=== PATIENT | female | born 1970 | race Caucasian/White ===

== ENCOUNTER 2020-08-22 11:39 | Inpatient (IN) | payer OTHER, MEDICAID ==
[~2020-08-22] VITALS: Ht 172.7 cm; Wt 79.4 kg
[2020-08-22] MEDS ORDERED: OXYCODONE W/ ACETAMINOPHEN 5/325MG TABLET PO ONE (14:15)
[2020-08-22 16:25] LABS: Basophils # (auto) 0 10 ^3/uL (0-0.2); Eosinophils # (auto) 0.1 10 ^3/uL (0-0.8); Hemoglobin 10.8 g/dL (12.2-16.2); Lymphocytes # (auto) 2.1 10 ^3/uL (0.4-5.4); Platelet Count (auto) 228 10^3/uL (140-450)
[2020-08-22 16:27] LABS: Basophils % (auto) 0.4 % (0.0-2.0); Eosinophils % (auto) 1.2 % (0.0-7.0); Hematocrit 32.5 % (36.0-46.0); Lymphocytes % (auto) 23.9 % (10.0-50.0); Mean Corpuscular Hemoglobin 26.6 pg (28.0-32.0); Mean Corpuscular Hgb Conc. 33.1 g/dL (32.0-36.0); Mean Corpuscular Volume 80.5 fL (80.0-100.0); Monocytes # (auto) 0.8 10 ^3/uL (0-1.3); Monocytes % (auto) 8.6 % (0.0-12.0); Neutrophils # (auto) 5.9 10 ^3/uL (1.6-8.6); Neutrophils % (auto) 65.9 % (37.0-80.0); Red Blood Cells 4.04 10^6/uL (4.0-5.20); White Blood Cell 8.9 10^3/uL (4.4-10.8)
[2020-08-22] MEDS ORDERED: NITROGLYCERIN 0.4 MG SL TAB SL PRN ×2 (16:30→17:45)
[2020-08-22] MEDS ORDERED: MORPHINE SULF INJ 2 MG/ML SYRINGE 1ML IV PRN ×3 (16:30→17:45)
[2020-08-22 16:36] LABS: INR 1.11 (0.9-1.15); Partial Thromboplastin Time 39.9 sec (23.0-31.2)
[2020-08-22 16:37] LABS: Albumin 3.4 g/dL (3.4-5.0); Potassium 3.8 mmol/L (3.5-5.1)
[2020-08-22 16:40] LABS: BUN/Creatinine Ratio 14.7; Bilirubin, Total 0.4 mg/dL (0.2-1.0); Total Protein 7.7 g/dL (6.4-8.2)
[2020-08-22] MEDS ORDERED: HYDROcodone-ACET 5/325MG TAB PO PRN (17:45)
[2020-08-22] MEDS ORDERED: SODIUM CHLORIDE 0.9% 1,000 ML IV SCH (17:45)
[2020-08-22] MEDS ORDERED: DOCUSATE SOD 100 MG CAP PO PRN (17:45)
[2020-08-22] MEDS ORDERED: LORazepam 0.5 MG TAB PO PRN (17:45)
[2020-08-22] MEDS ORDERED: ONDANSETRON HCL 4 MG/2 ML VIAL IV PRN (17:45)
[2020-08-22] MEDS ORDERED: ALUM & MAG HYDROX-SIMETH LIQ(MAALOX) 30 ML PO PRN (17:45)
[2020-08-22 18:37] LABS: Cholesterol 140 mg/dL (< 200)
[2020-08-22 18:42] LABS: HDL Cholesterol 52 mg/dL (40-59); LDL Cholesterol 78 mg/dL (< 100); Triglycerides 99 mg/dL (< 150)
[2020-08-22] MEDS ORDERED: CLINDAMYCIN 600MG IV 50 ML IV SCH (22:00)
[2020-08-23 00:06] VITALS: BP 121/49
[2020-08-23] MEDS ORDERED: cefTRIAXone 1GM/50ML D5W 50 ML IV SCH (09:00)
== END 2020-08-23 02:30 | disposition left against medical advice (07) | DRG 554 ==
LOC: EDBD 11:39 → ER 11:39 → OVERFLOW 11:40
PROVIDERS: ADMIT Hospitalist; ATTEND Internal Medicine
DX: M87.851 Other osteonecrosis, right femur (principal); L03.116 Cellulitis of left lower limb; D68.4 Acquired coagulation factor deficiency; E87.1 Hypo-osmolality and hyponatremia; F11.20 Opioid dependence, uncomplicated; M16.0 Bilateral primary osteoarthritis of hip; E88.81 Metabolic syndrome and other insulin resistance; E78.5 Hyperlipidemia, unspecified; I87.8 Other specified disorders of veins; Z96.649 Presence of unspecified artificial hip joint; Z20.822 Contact with and (suspected) exposure to COVID-19; G89.4 Chronic pain syndrome; D64.9 Anemia, unspecified; Z53.29 Procedure and treatment not carried out because of patient's decision for other reasons; E66.9 Obesity, unspecified; Z81.8 Family history of other mental and behavioral disorders; Z82.49 Family history of ischemic heart disease and other diseases of the circulatory system; Z86.718 Personal history of other venous thrombosis and embolism; Z87.891 Personal history of nicotine dependence; Z90.710 Acquired absence of both cervix and uterus; Z91.19 Patient's noncompliance with other medical treatment and regimen; Z91.81 History of falling; I87.2 Venous insufficiency (chronic) (peripheral)
CPT/HCPCS: 36415; 73502; 80053; 80061; 83036; 84484; 85025; 85610; 85730; 86850; 86900; 86901; 87040; 93971; 96361; 96365; 96375; G0378; J2405; J3490

== ENCOUNTER 2020-08-24 15:14 | Inpatient (IN) | payer OTHER, MEDICAID ==
[~2020-08-24] VITALS: Ht 172.7 cm; Wt 92.1 kg
[2020-08-24] MEDS ORDERED: OXYCODONE W/ ACETAMINOPHEN 5/325MG TABLET PO ONE (16:15)
[2020-08-24 16:48] LABS: Basophils # (auto) 0 10 ^3/uL (0-0.2); Basophils % (auto) 0.2 % (0.0-2.0); Eosinophils # (auto) 0.1 10 ^3/uL (0-0.8); Eosinophils % (auto) 1.7 % (0.0-7.0); Lymphocytes # (auto) 1.5 10 ^3/uL (0.4-5.4); Monocytes # (auto) 0.6 10 ^3/uL (0-1.3); Neutrophils # (auto) 5.5 10 ^3/uL (1.6-8.6); White Blood Cell 7.7 10^3/uL (4.4-10.8)
[2020-08-24 16:50] LABS: Hematocrit 31.5 % (36.0-46.0); Hemoglobin 10.5 g/dL (12.2-16.2); Lymphocytes % (auto) 19.9 % (10.0-50.0); Mean Corpuscular Hemoglobin 26.8 pg (28.0-32.0); Mean Corpuscular Hgb Conc. 33.3 g/dL (32.0-36.0); Mean Corpuscular Volume 80.4 fL (80.0-100.0); Monocytes % (auto) 7.2 % (0.0-12.0); Platelet Count (auto) 224 10^3/uL (140-450); Red Blood Cells 3.91 10^6/uL (4.0-5.20); Red Cell Distribution Width 16.4 % (11.8-14.3)
[2020-08-24 17:13] LABS: INR 1.01 (0.9-1.15)
[2020-08-24 17:32] LABS: Albumin 3.7 g/dL (3.4-5.0); Anion Gap 5 (5-15); Blood Urea Nitrogen 12 mg/dL (7-18); Calcium 8.9 mg/dL (8.5-10.1); Carbon Dioxide 28 mmol/L (21-32); Chloride 105 mmol/L (98-107); Glucose 101 mg/dL (74-106); Magnesium 2.3 mg/dL (1.6-2.6); Potassium 3.3 mmol/L (3.5-5.1); Sodium 138 mmol/L (136-145)
[2020-08-24 17:43] LABS: Alanine Aminotransferase 24 U/L (13-56); Alkaline Phosphatase 83 U/L (45-117); Aspartate Aminotransferase 22 U/L (15-37); BUN/Creatinine Ratio 15.4; Bilirubin, Total 0.3 mg/dL (0.2-1.0); GFR African American 100 mL/min; GFR Non-African American 82 mL/min
[2020-08-24] MEDS ORDERED: LABETALOL HCL 5 MG/ML 4ML SYRINGE IV PRN (18:30)
[2020-08-24] MEDS ORDERED: NITROGLYCERIN 0.4 MG SL TAB SL PRN (18:30)
[2020-08-24] MEDS: SODIUM CHLORIDE 0.9% 1,000 ML IV SCH (18:30)
[2020-08-24] MEDS ORDERED: ACETAMINOPHEN 500 MG TAB PO PRN (18:30)
[2020-08-24] MEDS ORDERED: MORPHINE SULF INJ 2 MG/ML SYRINGE 1ML IV PRN (18:30)
[2020-08-24] MEDS ORDERED: DOCUSATE CALCIUM 240 MG CAP PO PRN (18:30)
[2020-08-24] MEDS ORDERED: LORazepam 0.5 MG TAB PO PRN (18:30)
[2020-08-24] MEDS: ONDANSETRON HCL 4 MG/2 ML VIAL IV PRN (22:37)
[2020-08-24] MEDS: HYDROmorphone HCL 2 MG/ML VL IV PRN (22:37)
[2020-08-25 04:50] VITALS: BP 139/76
[2020-08-25] MEDS: ONDANSETRON HCL 4 MG/2 ML VIAL IV PRN ×3 (05:30→21:26)
[2020-08-25] MEDS: HYDROmorphone HCL 2 MG/ML VL IV PRN ×4 (05:30→21:25)
[2020-08-25] MEDS: FUROSEMIDE 20 MG/2 ML VIAL IV SCH ×2 (05:57→18:31)
[2020-08-25] MEDS ORDERED: FURO1TAB33 PO (06:07)
[2020-08-25] MEDS ORDERED: TRAM50TA2 PO (06:07)
[2020-08-25] MEDS ORDERED: OME20GT GT (06:07)
[2020-08-25] MEDS ORDERED: POTA10TA51 PO (06:07)
[2020-08-25] MEDS ORDERED: CITA10TA8 PO (06:07)
[2020-08-25 08:00] VITALS: BP 116/74
[2020-08-25 09:40] LABS: Basophils # (auto) 0 10 ^3/uL (0-0.2); Eosinophils # (auto) 0.2 10 ^3/uL (0-0.8); Hematocrit 31.2 % (36.0-46.0); Hemoglobin 10.2 g/dL (12.2-16.2); Lymphocytes # (auto) 2.3 10 ^3/uL (0.4-5.4); Mean Corpuscular Hgb Conc. 32.7 g/dL (32.0-36.0); Nucleated Red Blood Cells % 0.1 %
[2020-08-25 09:43] LABS: Basophils % (auto) 0.3 % (0.0-2.0); Eosinophils % (auto) 2.9 % (0.0-7.0); Lymphocytes % (auto) 36.5 % (10.0-50.0); Mean Corpuscular Hemoglobin 26.4 pg (28.0-32.0); Mean Corpuscular Volume 80.9 fL (80.0-100.0); Monocytes # (auto) 0.5 10 ^3/uL (0-1.3); Monocytes % (auto) 8.2 % (0.0-12.0); Neutrophils # (auto) 3.3 10 ^3/uL (1.6-8.6); Neutrophils % (auto) 52.1 % (37.0-80.0); Platelet Count (auto) 228 10^3/uL (140-450); Red Blood Cells 3.85 10^6/uL (4.0-5.20); Red Cell Distribution Width 16.6 % (11.8-14.3); White Blood Cell 6.4 10^3/uL (4.4-10.8)
[2020-08-25 10:00] LABS: Albumin 3.3 g/dL (3.4-5.0); Calcium 8.5 mg/dL (8.5-10.1); Potassium 3.5 mmol/L (3.5-5.1)
[2020-08-25] MEDS: ENOXAPARIN SOD 40 MG/0.4 ML SYRINGE SC SCH ×2 (10:00→10:23)
[2020-08-25 10:05] LABS: BUN/Creatinine Ratio 11.5; Bilirubin, Total 0.3 mg/dL (0.2-1.0); Total Protein 7.5 g/dL (6.4-8.2)
[2020-08-25] MEDS: cefTRIAXone 1GM/50ML D5W 50 ML IV SCH (10:21)
[2020-08-25] MEDS: PANTOPRAZOLE 40 MG TAB PO SCH (10:22)
[2020-08-25] MEDS: SODIUM CHLORIDE 0.9% 1,000 ML IV SCH (15:14)
[2020-08-25] MEDS ORDERED: RIV20T PO (19:09)
[2020-08-25 22:00] VITALS: BP 119/60
[2020-08-25 22:07] LABS: Urine Bacteria FEW /hpf (None Seen); Urine Blood Negative /uL (Negative); Urine Hyaline Cast FEW /lpf (0 - 2); Urine Specific Gravity 1.006 (1.001-1.035); Urine WBC 6 /hpf (0 - 5)
[2020-08-26] MEDS: HYDROmorphone HCL 2 MG/ML VL IV PRN ×6 (01:38→23:21)
[2020-08-26] MEDS: ONDANSETRON HCL 4 MG/2 ML VIAL IV PRN ×4 (01:38→23:22)
[2020-08-26] MEDS: SODIUM CHLORIDE 0.9% 1,000 ML IV SCH ×2 (03:46→20:30)
[2020-08-26 05:00] VITALS: BP 130/70
[2020-08-26] MEDS: FUROSEMIDE 20 MG/2 ML VIAL IV SCH ×2 (05:49→19:00)
[2020-08-26 08:00] VITALS: BP 134/70
[2020-08-26] MEDS: cefTRIAXone 1GM/50ML D5W 50 ML IV SCH (09:38)
[2020-08-26] MEDS: PANTOPRAZOLE 40 MG TAB PO SCH (09:38)
[2020-08-26 16:00] VITALS: BP 125/65
[2020-08-26 22:00] VITALS: BP 123/73
[2020-08-27 05:00] VITALS: BP 150/73
[2020-08-27] MEDS: FUROSEMIDE 20 MG/2 ML VIAL IV SCH ×2 (06:00→17:22)
[2020-08-27] MEDS ORDERED: TRANEXAMIC ACID 20 ML ONE (07:50)
[2020-08-27] MEDS ORDERED: BUPIVACAINE 0.25% INJ 50ML VIAL ONE (07:50)
[2020-08-27] MEDS ORDERED: ceFAZolin 1GM VL ONE (07:50)
[2020-08-27] MEDS ORDERED: KETOROLAC TROMETH 30 MG/ML 1ML VIAL ONE (07:52)
[2020-08-27] MEDS ORDERED: MORPHINE SULF(PF) 0.5MG/ML 10ML VIAL ONE (07:52)
[2020-08-27] MEDS ORDERED: VANCOMYCIN HCL 1000 MG VL ONE ×2 (07:54→07:55)
[2020-08-27 08:00] VITALS: BP 125/80
[2020-08-27] MEDS: cefTRIAXone 1GM/50ML D5W 50 ML IV SCH (08:21)
[2020-08-27] MEDS: PANTOPRAZOLE 40 MG TAB PO SCH ×2 (08:21→10:00)
[2020-08-27] MEDS: CITALOPRAM HYDROBR 20 MG TAB PO SCH ×2 (08:21→10:00)
[2020-08-27] MEDS ORDERED: TETRACAINE 1% INJ 2 ML VIAL IJ ONE (10:46)
[2020-08-27] MEDS ORDERED: ceFAZolin 1GM/50ML 100 ML IV ONE (11:38)
[2020-08-27] MEDS ORDERED: DexAMETHasone SOD PHOS 10MG/1ML VIAL INJ IV PRN (13:30)
[2020-08-27] MEDS ORDERED: ePHEDrine SULFATE 50 MG/ML AMP IV PRN (13:30)
[2020-08-27] MEDS ORDERED: MIDAZOLAM HCL 1MG/1ML-2 ML VIAL IV PRN (13:30)
[2020-08-27] MEDS ORDERED: MORPHINE SULFATE 4 MG/ML SYR/VIAL IV PRN (13:30)
[2020-08-27] MEDS ORDERED: NALBUPHINE HCL 10 MG/1ml INJECTION SUBCUT ONE (13:30)
[2020-08-27] MEDS ORDERED: NALOXONE HCL 0.4 MG/ML VIAL IV PRN (13:30)
[2020-08-27] MEDS ORDERED: HYDROmorphone HCL 2 MG/ML VL IV PRN (13:30)
[2020-08-27] MEDS ORDERED: diphenhdrAMINE HCL 50 MG/1 ML VL IV PRN (13:30)
[2020-08-27] MEDS ORDERED: LABETALOL HCL 5 MG/ML 4ML SYRINGE IV PRN (13:30)
[2020-08-27] MEDS: LACTATED RINGER'S 1,000 ML IV SCH (14:15)
[2020-08-27] MEDS: SODIUM CHLORIDE 0.9% 1,000 ML IV SCH (17:20)
[2020-08-27] MEDS ORDERED: ceFAZolin 1GM 2 GM in D5W 5% 100 ML IV SCH (22:00)
[2020-08-28] MEDS: LACTATED RINGER'S 1,000 ML IV SCH ×2 (00:15→10:15)
[2020-08-28] MEDS: HYDROmorphone HCL 2 MG/ML VL IV PRN ×2 (01:04→08:00)
[2020-08-28] MEDS: ONDANSETRON HCL 4 MG/2 ML VIAL IV PRN (01:05)
[2020-08-28] MEDS: OXYCODONE W/ ACETAMINOPHEN 5/325MG TABLET PO PRN ×4 (05:44→21:50)
[2020-08-28] MEDS: FUROSEMIDE 20 MG/2 ML VIAL IV SCH ×2 (05:50→17:50)
[2020-08-28 07:05] LABS: Hematocrit 25.5 % (36.0-46.0); Hemoglobin 8.4 g/dL (12.2-16.2)
[2020-08-28 08:00] VITALS: BP 123/64
[2020-08-28] MEDS: ceFAZolin 1GM 2 GM in D5W 5% 100 ML IV SCH ×2 (08:11→16:27)
[2020-08-28] MEDS: CITALOPRAM HYDROBR 20 MG TAB PO SCH (10:25)
[2020-08-28] MEDS: PANTOPRAZOLE 40 MG TAB PO SCH (10:25)
[2020-08-28] MEDS: ENOXAPARIN SOD 40 MG/0.4 ML SYRINGE SC SCH (10:25)
[2020-08-28] MEDS: SODIUM CHLORIDE 0.9% 1,000 ML IV SCH (10:28)
[2020-08-28 16:00] VITALS: BP 128/74
[2020-08-28] MEDS: FERROUS SULFATE 325 MG TAB PO SCH (17:49)
[2020-08-28 22:00] VITALS: BP 127/72
[2020-08-29] MEDS: ceFAZolin 1GM 2 GM in D5W 5% 100 ML IV SCH ×2
[2020-08-29] MEDS: OXYCODONE W/ ACETAMINOPHEN 5/325MG TABLET PO PRN ×2 (03:14→21:02)
[2020-08-29 05:00] VITALS: BP 114/67
[2020-08-29] MEDS: LACTATED RINGER'S 1,000 ML IV SCH ×2 (05:08→12:28)
[2020-08-29] MEDS: FUROSEMIDE 20 MG/2 ML VIAL IV SCH ×2 (05:32→17:42)
[2020-08-29 06:54] LABS: Hemoglobin 8.4 g/dL (12.2-16.2)
[2020-08-29 08:00] VITALS: BP 136/81
[2020-08-29] MEDS: FERROUS SULFATE 325 MG TAB PO SCH ×2 (08:03→17:42)
[2020-08-29] MEDS ORDERED: ACETAMINOPHEN 325 MG TAB PO PRN (08:30)
[2020-08-29] MEDS ORDERED: ceFAZolin 1GM 2 GM in D5W 5% 100 ML IV ONE (08:30)
[2020-08-29] MEDS: cefTRIAXone 1GM/50ML D5W 50 ML IV SCH (08:39)
[2020-08-29] MEDS: CITALOPRAM HYDROBR 20 MG TAB PO SCH (09:45)
[2020-08-29] MEDS: ENOXAPARIN SOD 40 MG/0.4 ML SYRINGE SC SCH (09:45)
[2020-08-29] MEDS: MULTIPLE VITAMIN TAB PO SCH (09:49)
[2020-08-29] MEDS: PANTOPRAZOLE 40 MG TAB PO SCH (09:49)
[2020-08-29] MEDS: ASCORBIC ACID 500 MG TAB PO SCH (09:49)
[2020-08-29] MEDS ORDERED: AZITHROMYCIN 500MG/ 250ML 250 ML IV ONE (11:15)
[2020-08-29] MEDS: IPRATROPIUM BROM 0.5 MG/2.5ML INH SOL NEB SCH ×3 (12:30→23:54)
[2020-08-29] MEDS: ALBUTEROL SULF 2.5 MG/0.5ML(0.5%) NEB SOLN NEB SCH ×3 (12:30→23:54)
[2020-08-29 16:00] VITALS: BP 120/76
[2020-08-29 22:00] VITALS: BP 110/62
[2020-08-30] MEDS: LACTATED RINGER'S 1,000 ML IV SCH ×3 (01:08→23:30)
[2020-08-30 05:00] VITALS: BP 107/69
[2020-08-30] MEDS: FUROSEMIDE 20 MG/2 ML VIAL IV SCH ×2 (05:17→17:48)
[2020-08-30] MEDS: IPRATROPIUM BROM 0.5 MG/2.5ML INH SOL NEB SCH ×3 (05:55→18:18)
[2020-08-30] MEDS: ALBUTEROL SULF 2.5 MG/0.5ML(0.5%) NEB SOLN NEB SCH ×3 (05:55→18:18)
[2020-08-30 08:00] VITALS: BP 116/66
[2020-08-30] MEDS: FERROUS SULFATE 325 MG TAB PO SCH ×2 (08:21→17:48)
[2020-08-30] MEDS: cefTRIAXone 1GM/50ML D5W 50 ML IV SCH (08:22)
[2020-08-30] MEDS: HYDROmorphone HCL 2 MG/ML VL IV PRN ×2 (08:22→17:49)
[2020-08-30] MEDS: ONDANSETRON HCL 4 MG/2 ML VIAL IV PRN ×2 (08:23→17:49)
[2020-08-30] MEDS: AZITHROMYCIN 500MG/ 250ML 250 ML IV SCH (10:43)
[2020-08-30] MEDS: CITALOPRAM HYDROBR 20 MG TAB PO SCH (10:52)
[2020-08-30] MEDS: PANTOPRAZOLE 40 MG TAB PO SCH (10:53)
[2020-08-30] MEDS: ASCORBIC ACID 500 MG TAB PO SCH (10:54)
[2020-08-30] MEDS: MULTIPLE VITAMIN TAB PO SCH (10:54)
[2020-08-30] MEDS: ENOXAPARIN SOD 40 MG/0.4 ML SYRINGE SC SCH (10:55)
[2020-08-30 16:00] VITALS: BP 112/62
[2020-08-30 21:53] VITALS: BP 102/60
[2020-08-31] MEDS: IPRATROPIUM BROM 0.5 MG/2.5ML INH SOL NEB SCH (00:07)
[2020-08-31] MEDS: ALBUTEROL SULF 2.5 MG/0.5ML(0.5%) NEB SOLN NEB SCH (00:07)
[2020-08-31 05:05] VITALS: BP_SYST 122; BP_SYST 125; BP_DIAS 64; BP_DIAS 72
[2020-08-31] MEDS: FUROSEMIDE 20 MG/2 ML VIAL IV SCH (05:41)
[2020-08-31 08:00] VITALS: BP 129/66
[2020-08-31] MEDS: LACTATED RINGER'S 1,000 ML IV SCH (08:15)
[2020-08-31] MEDS: FERROUS SULFATE 325 MG TAB PO SCH (09:49)
[2020-08-31] MEDS: AZITHROMYCIN 500MG/ 250ML 250 ML IV SCH (09:50)
[2020-08-31] MEDS: cefTRIAXone 1GM/50ML D5W 50 ML IV SCH (09:50)
[2020-08-31] MEDS: CITALOPRAM HYDROBR 20 MG TAB PO SCH (09:51)
[2020-08-31] MEDS: ASCORBIC ACID 500 MG TAB PO SCH (09:51)
[2020-08-31] MEDS: MULTIPLE VITAMIN TAB PO SCH (09:51)
[2020-08-31] MEDS: PANTOPRAZOLE 40 MG TAB PO SCH (09:51)
[2020-08-31] MEDS: ENOXAPARIN SOD 40 MG/0.4 ML SYRINGE SC SCH (09:52)
[2020-08-31 13:01] VITALS: BP 129/66
== END 2020-08-31 14:07 | disposition home health service (06) | DRG 469 ==
LOC: ER 15:14 → OVERFLOW 15:15 → WEST WING 08-25 04:05 → CENTRAL 08-25 04:32
PROVIDERS: ADMIT Family Medicine; ATTEND Family Medicine
PROC: 8E0YXBZ Computer Assisted Procedure of Lower Extremity (ICD-10-PCS; 2020-08-27)
PROC: 0SR906Z Replacement of Right Hip Joint with Oxidized Zirconium on Polyethylene Synthetic Substitute, Open Approach (ICD-10-PCS; principal; 2020-08-27 11:45)
DX: M87.851 Other osteonecrosis, right femur (principal); J18.9 Pneumonia, unspecified organism; L97.929 Non-pressure chronic ulcer of unspecified part of left lower leg with unspecified severity; N39.0 Urinary tract infection, site not specified; L03.116 Cellulitis of left lower limb; E87.6 Hypokalemia; I50.9 Heart failure, unspecified; D64.9 Anemia, unspecified; M21.70 Unequal limb length (acquired), unspecified site; I87.2 Venous insufficiency (chronic) (peripheral); F31.9 Bipolar disorder, unspecified; G89.29 Other chronic pain; R29.6 Repeated falls; Z20.822 Contact with and (suspected) exposure to COVID-19; Z81.8 Family history of other mental and behavioral disorders; Z82.49 Family history of ischemic heart disease and other diseases of the circulatory system; Z86.718 Personal history of other venous thrombosis and embolism; Z90.710 Acquired absence of both cervix and uterus; Z87.891 Personal history of nicotine dependence
CPT/HCPCS: 36415; 71045; 72170; 73590; 80053; 81001; 83735; 83880; 84484; 85014; 85018; 85025; 85610; 86850; 86900; 86901; 87040; 87086; 87426; 93005; 93306; 93971; 94640; 96360; 97163; A4565; G0378; J0690; J0696; J1885; J2405; J3490; J7060

== ENCOUNTER 2020-10-08 16:27 | Inpatient (IN) | payer OTHER, MEDICAID ==
[~2020-10-08] VITALS: Ht 172.7 cm; Wt 86.4 kg
[~2020-10-08 16:27] MED LIST: CITA10TA8 PO; FURO1TAB33 PO; OME20GT GT; POTA10TA51 PO; RIV20T PO; TRAM50TA2 PO
[2020-10-08] MEDS ORDERED: SODIUM CHLORIDE 0.9% 1,000 ML IV ONE ×2 (17:00)
[2020-10-08] MEDS ORDERED: PIPERACILLIN-TAZOB 3.375GM 100 ML IV ONE (17:00)
[2020-10-08] MEDS ORDERED: DOCUSATE SOD 100 MG CAP PO PRN (18:45)
[2020-10-08] MEDS ORDERED: NITROGLYCERIN 0.4 MG SL TAB SL PRN (18:45)
[2020-10-08] MEDS ORDERED: ONDANSETRON HCL 4 MG/2 ML VIAL IV PRN (18:45)
[2020-10-08] MEDS ORDERED: MORPHINE SULFATE INJECTION 2 MG/ML SYRG IV PRN ×2 (18:45)
[2020-10-08] MEDS ORDERED: ACETAMINOPHEN 500 MG TAB PO PRN (18:45)
[2020-10-08 18:47] LABS: Basophils # (auto) 0 10 ^3/uL (0-0.2); Basophils % (auto) 0.3 % (0.0-2.0); Eosinophils # (auto) 0.2 10 ^3/uL (0-0.8); Eosinophils % (auto) 2.8 % (0.0-7.0); Hematocrit 23.4 % (36.0-46.0); Hemoglobin 7.5 g/dL (12.2-16.2); Lymphocytes # (auto) 1.8 10 ^3/uL (0.4-5.4); Lymphocytes % (auto) 33.8 % (10.0-50.0); Mean Corpuscular Hemoglobin 25.6 pg (28.0-32.0); Mean Corpuscular Volume 79.9 fL (80.0-100.0); Monocytes # (auto) 0.5 10 ^3/uL (0-1.3); Neutrophils # (auto) 2.9 10 ^3/uL (1.6-8.6); Neutrophils % (auto) 54.1 % (37.0-80.0); Red Blood Cells 2.92 10^6/uL (4.0-5.20); Red Cell Distribution Width 16.9 % (11.8-14.3); White Blood Cell 5.3 10^3/uL (4.4-10.8)
[2020-10-08 19:04] LABS: BUN/Creatinine Ratio 14.3; Calcium 8.2 mg/dL (8.5-10.1); Potassium 3.3 mmol/L (3.5-5.1)
[2020-10-08 19:06] LABS: Bilirubin, Total 0.2 mg/dL (0.2-1.0); Total Protein 6.4 g/dL (6.4-8.2)
[2020-10-08 19:11] LABS: INR 1.3 (0.9-1.15); Partial Thromboplastin Time 47.3 sec (23.0-31.2)
[2020-10-08] MEDS: HYDROcodone-ACET 5/325MG TAB PO PRN (19:56)
[2020-10-08] MEDS: CLINDAMYCIN 300MG IV 50 ML IV SCH (22:25)
[2020-10-09] MEDS: CLINDAMYCIN 300MG IV 50 ML IV SCH ×3 (06:34→21:32)
[2020-10-09] MEDS: HYDROcodone-ACET 5/325MG TAB PO PRN ×2 (06:52→15:16)
[2020-10-09 08:35] VITALS: BP 130/86
[2020-10-09 08:58] LABS: Basophils # (auto) 0 10 ^3/uL (0-0.2); Basophils % (auto) 0.3 % (0.0-2.0); Eosinophils # (auto) 0.2 10 ^3/uL (0-0.8); Mean Corpuscular Volume 80.4 fL (80.0-100.0); Monocytes # (auto) 0.4 10 ^3/uL (0-1.3); Red Cell Distribution Width 16.7 % (11.8-14.3); White Blood Cell 5.1 10^3/uL (4.4-10.8)
[2020-10-09 09:00] LABS: Eosinophils % (auto) 3.6 % (0.0-7.0); Hematocrit 23.5 % (36.0-46.0); Hemoglobin 7.6 g/dL (12.2-16.2); Lymphocytes # (auto) 1.4 10 ^3/uL (0.4-5.4); Lymphocytes % (auto) 27.3 % (10.0-50.0); Mean Corpuscular Hemoglobin 26.2 pg (28.0-32.0); Mean Corpuscular Hgb Conc. 32.6 g/dL (32.0-36.0); Monocytes % (auto) 7.7 % (0.0-12.0); Neutrophils # (auto) 3.1 10 ^3/uL (1.6-8.6); Neutrophils % (auto) 61.1 % (37.0-80.0); Red Blood Cells 2.92 10^6/uL (4.0-5.20)
[2020-10-09] MEDS ORDERED: INFLUENZA QUAD 2020-2021 0.5 ML SYRG IM ONE (09:00)
[2020-10-09 09:19] LABS: BUN/Creatinine Ratio 12.5; Calcium 7.8 mg/dL (8.5-10.1); Potassium 3.5 mmol/L (3.5-5.1)
[2020-10-09 09:35] LABS: % Iron Saturation 8.6 % (15-50)
[2020-10-09] MEDS ORDERED: OMEPRAZOLE 20MG/10ML ORAL SUSP GT SCH (10:00)
[2020-10-09] MEDS ORDERED: FAMOTIDINE 20 MG TAB PO SCH (10:00)
[2020-10-09] MEDS ORDERED: FUROSEMIDE 40 MG/4 ML VIAL IV SCH (10:00)
[2020-10-09] MEDS: cefTRIAXone 1GM/50ML D5W 50 ML IV SCH (10:11)
[2020-10-09] MEDS: CITALOPRAM HYDROBR 20 MG TAB PO SCH (10:12)
[2020-10-09 13:00] VITALS: BP 124/72
[2020-10-09] MEDS ORDERED: SODIUM FERR GLUC 62.5MG/5ML 125 MG in SODIUM CHL 0.9% 100 ML IV ONE (14:45)
[2020-10-09] MEDS ORDERED: BISACODYL 5 MG EC TAB PO ONE (15:00)
[2020-10-09] MEDS ORDERED: MORPHINE SULFATE INJECTION 2 MG/ML SYRG IV PRN (15:00)
[2020-10-09 17:00] VITALS: BP 138/68
[2020-10-09] MEDS: FUROSEMIDE 40 MG/4 ML VIAL IV SCH (17:35)
[2020-10-09] MEDS ORDERED: FERROUS SULFATE 325mg EC TAB PO SCH (18:00)
[2020-10-09] MEDS ORDERED: RIVAROXABAN 20 MG TAB PO SCH (18:00)
[2020-10-09 18:47] LABS: Urine Bacteria NONE SEEN /hpf (None Seen); Urine Blood Negative /uL (Negative); Urine Specific Gravity 1.009 (1.001-1.035); Urine WBC 3 /hpf (0 - 5)
[2020-10-09 18:52] LABS: Alcohol, Urine < 3.0 mg/dL (0-10); Amphetamine Screen, Urine POSITIVE (NEGATIVE); Barbiturate Scree,Urine NEGATIVE (NEGATIVE); Benzodiazephine Screen, Urine NEGATIVE (NEGATIVE); Cannabinoid Screen, Urine NEGATIVE (NEGATIVE); Cocaine Screen, Urine NEGATIVE (NEGATIVE); Opiate Scree,Urine NEGATIVE (NEGATIVE); Phencyclidine Screen, Urine NEGATIVE (NEGATIVE)
[2020-10-09] MEDS: KETOROLAC TROMETH 30 MG/ML 1ML VIAL IV PRN (20:56)
[2020-10-09 22:00] VITALS: BP 142/76
[2020-10-10 05:00] VITALS: BP 141/95
[2020-10-10] MEDS: CLINDAMYCIN 300MG IV 50 ML IV SCH ×3 (06:00→22:14)
[2020-10-10] MEDS: FUROSEMIDE 40 MG/4 ML VIAL IV SCH ×2 (06:00→18:31)
[2020-10-10] MEDS: KETOROLAC TROMETH 30 MG/ML 1ML VIAL IV PRN (06:59)
[2020-10-10 08:46] VITALS: BP 133/80
[2020-10-10] MEDS: CITALOPRAM HYDROBR 20 MG TAB PO SCH (09:24)
[2020-10-10] MEDS: cefTRIAXone 1GM/50ML D5W 50 ML IV SCH (09:24)
[2020-10-10] MEDS: PANTOPRAZOLE 40 MG TAB PO SCH (10:21)
[2020-10-10] MEDS: SODIUM FERR GLUC 62.5MG/5ML 125 MG in SODIUM CHL 0.9% 100 ML IV SCH (12:53)
[2020-10-10 13:00] VITALS: BP 148/80
[2020-10-10] MEDS ORDERED: METOPROLOL SUCCINATE XL 50 MG TAB PO ONE (13:45)
[2020-10-10 16:58] VITALS: BP 139/61
[2020-10-10] MEDS: MORPHINE SULFATE INJECTION 2 MG/ML SYRG IV PRN (18:41)
[2020-10-10 22:00] VITALS: BP 127/76
[2020-10-11 05:00] VITALS: BP 136/78
[2020-10-11] MEDS: CLINDAMYCIN 300MG IV 50 ML IV SCH ×2 (05:48→14:16)
[2020-10-11] MEDS: FUROSEMIDE 40 MG/4 ML VIAL IV SCH (05:49)
[2020-10-11] MEDS: MORPHINE SULFATE INJECTION 2 MG/ML SYRG IV PRN (08:28)
[2020-10-11 09:00] VITALS: BP 146/86
[2020-10-11] MEDS: cefTRIAXone 1GM/50ML D5W 50 ML IV SCH (09:28)
[2020-10-11] MEDS: CITALOPRAM HYDROBR 20 MG TAB PO SCH (09:28)
[2020-10-11] MEDS: PANTOPRAZOLE 40 MG TAB PO SCH (09:29)
[2020-10-11] MEDS ORDERED: METOPROLOL SUCCINATE XL 50 MG TAB PO SCH (10:00)
[2020-10-11] MEDS ORDERED: DOXY-340 PO (11:29)
[2020-10-11] MEDS ORDERED: METO25TA93 PO (11:29)
[2020-10-11 12:26] VITALS: BP 146/86
[2020-10-11 12:54] VITALS: BP 141/78
[2020-10-11] MEDS: SODIUM FERR GLUC 62.5MG/5ML 125 MG in SODIUM CHL 0.9% 100 ML IV SCH (14:16)
[2021-05-09] MEDS ORDERED: OME20GT PO (14:56)
[2021-05-09] MEDS ORDERED: FURO1TAB33 PO (14:56)
== END 2020-10-11 15:30 | disposition home or self-care (01) | DRG 603 ==
LOC: ER 16:27 → TELE 16:28 → TELE-WESTW 10-09 05:39
PROVIDERS: ADMIT Nurse Practitioner Acute Care; ATTEND Internal Medicine
DX: L03.116 Cellulitis of left lower limb (principal); I50.32 Chronic diastolic (congestive) heart failure; L03.115 Cellulitis of right lower limb; F31.9 Bipolar disorder, unspecified; M81.0 Age-related osteoporosis without current pathological fracture; K46.9 Unspecified abdominal hernia without obstruction or gangrene; Z96.641 Presence of right artificial hip joint; I89.0 Lymphedema, not elsewhere classified; I11.0 Hypertensive heart disease with heart failure; I87.2 Venous insufficiency (chronic) (peripheral); Z20.822 Contact with and (suspected) exposure to COVID-19; M16.12 Unilateral primary osteoarthritis, left hip; Z72.0 Tobacco use; Z81.8 Family history of other mental and behavioral disorders; Z82.49 Family history of ischemic heart disease and other diseases of the circulatory system; Z86.718 Personal history of other venous thrombosis and embolism; Z90.710 Acquired absence of both cervix and uterus
CPT/HCPCS: 36415; 71046; 73502; 74176; 80048; 80053; 80307; 81001; 83540; 83550; 83605; 83880; 84484; 85025; 85379; 85610; 85730; 87040; 87426; 93005; 93970; 96365; G0378; J0696; J1885; J2543; J3490

== ENCOUNTER → 2021-05-09 | Outpatient (CLI) | payer OTHER, MEDICAID ==
[~2021-05-09] VITALS: Ht 172.7 cm; Wt 87.5 kg
[~2021-05-09] MED LIST changes: +DOXY-340 PO; +METO25TA93 PO; +OME20GT PO
== END | disposition home or self-care (01) ==
LOC: LAB 11:29 → CATH 05-13 07:35 → EDSTATUS 05-13 08:52
PROVIDERS: ATTEND Internal Medicine
DX: Z20.822 Contact with and (suspected) exposure to COVID-19 (principal); M79.89 Other specified soft tissue disorders; I35.1 Nonrheumatic aortic (valve) insufficiency

== ENCOUNTER 2021-11-15 12:54 | Emergency (ER) | payer OTHER, MEDICAID ==
[~2021-11-15] VITALS: Ht 172.7 cm; Wt 89.8 kg
[~2021-11-15 12:54] MED LIST changes: -CITA10TA8 PO; -DOXY-340 PO; -METO25TA93 PO; -OME20GT GT; -RIV20T PO; -TRAM50TA2 PO
[2021-11-15 12:58] VITALS: BP 163/77
[2021-11-15 14:44] LABS: Basophils # (auto) 0 10 ^3/uL (0-0.2); Basophils % (auto) 0.5 % (0.0-2.0); Eosinophils # (auto) 0.2 10 ^3/uL (0-0.8); Eosinophils % (auto) 2.4 % (0.0-7.0); Hematocrit 32.5 % (36.0-46.0); Hemoglobin 10.8 g/dL (12.2-16.2); Lymphocytes # (auto) 1.8 10 ^3/uL (0.4-5.4); Lymphocytes % (auto) 25.3 % (10.0-50.0); Mean Corpuscular Hemoglobin 27.1 pg (28.0-32.0); Mean Corpuscular Hgb Conc. 33.1 g/dL (32.0-36.0); Mean Corpuscular Volume 81.9 fL (80.0-100.0); Monocytes # (auto) 0.5 10 ^3/uL (0-1.3); Monocytes % (auto) 6.7 % (0.0-12.0); Neutrophils # (auto) 4.7 10 ^3/uL (1.6-8.6); Neutrophils % (auto) 65.1 % (37.0-80.0); Nucleated Red Blood Cells % 0.1 %; Red Blood Cells 3.97 10^6/uL (4.0-5.20); White Blood Cell 7.2 10^3/uL (4.4-10.8)
[2021-11-15 15:07] LABS: Albumin 3.5 g/dL (3.4-5.0); Calcium 8.8 mg/dL (8.5-10.1); Potassium 3.8 mmol/L (3.5-5.1)
[2021-11-15 15:12] LABS: BUN/Creatinine Ratio 21.2; Bilirubin, Total 0.2 mg/dL (0.2-1.0); Total Protein 7.6 g/dL (6.4-8.2)
== END 2021-11-15 15:18 | disposition left against medical advice (07) ==
LOC: ER 12:54
DX: L03.116 Cellulitis of left lower limb (principal); L03.115 Cellulitis of right lower limb; R07.9 Chest pain, unspecified; Z87.891 Personal history of nicotine dependence
CPT/HCPCS: 36415; 80053; 83880; 84484; 85025; 93005

== ENCOUNTER → 2022-08-20 | Day surgery (SDC) | payer OTHER, MEDICAID ==
[2022-08-05 16:43] LABS: Basophils # (auto) 0 10 ^3/uL (0-0.2); Eosinophils # (auto) 0.2 10 ^3/uL (0-0.8); Eosinophils % (auto) 2.9 % (0.0-7.0); Hemoglobin 9.9 g/dL (12.2-16.2); Lymphocytes # (auto) 1.7 10 ^3/uL (0.4-5.4); White Blood Cell 6.2 10^3/uL (4.4-10.8)
[2022-08-05 16:45] LABS: Basophils % (auto) 0.3 % (0.0-2.0); Hematocrit 30.6 % (36.0-46.0); Lymphocytes % (auto) 27.1 % (10.0-50.0); Mean Corpuscular Hgb Conc. 32.3 g/dL (32.0-36.0); Mean Corpuscular Volume 77.4 fL (80.0-100.0); Monocytes # (auto) 0.4 10 ^3/uL (0-1.3); Monocytes % (auto) 7.1 % (0.0-12.0); Neutrophils # (auto) 3.9 10 ^3/uL (1.6-8.6); Neutrophils % (auto) 62.6 % (37.0-80.0); Red Blood Cells 3.96 10^6/uL (4.0-5.20); Red Cell Distribution Width 16.7 % (11.8-14.3)
[2022-08-05 16:49] LABS: Urine Bacteria NONE SEEN /hpf (None Seen); Urine Blood Negative /uL (Negative); Urine Mucus FEW (None Seen); Urine Specific Gravity 1.031 (1.001-1.035); Urine WBC 1 /hpf (0 - 5)
[2022-08-05 16:58] LABS: INR 0.92 (0.9-1.15); Partial Thromboplastin Time 33.9 sec (24.6-33.4)
[2022-08-05 17:02] LABS: Albumin 3.8 g/dL (3.4-5.0); Calcium 8.7 mg/dL (8.5-10.1); Potassium 3.5 mmol/L (3.5-5.1)
[2022-08-05 17:05] LABS: BUN/Creatinine Ratio 15.7; Bilirubin, Total 0.2 mg/dL (0.2-1.0); Total Protein 7.2 g/dL (6.4-8.2)
[2022-08-19 12:09] LABS: Basophils # (auto) 0 10 ^3/uL (0-0.2); Basophils % (auto) 0.3 % (0.0-2.0); Eosinophils # (auto) 0.2 10 ^3/uL (0-0.8); Lymphocytes # (auto) 2.2 10 ^3/uL (0.4-5.4); Neutrophils % (auto) 58.2 % (37.0-80.0); White Blood Cell 6.9 10^3/uL (4.4-10.8)
[2022-08-19 12:11] LABS: Eosinophils % (auto) 2.9 % (0.0-7.0); Hematocrit 32.8 % (36.0-46.0); Hemoglobin 10.2 g/dL (12.2-16.2); Lymphocytes % (auto) 32.4 % (10.0-50.0); Mean Corpuscular Hemoglobin 24.2 pg (28.0-32.0); Mean Corpuscular Hgb Conc. 31.2 g/dL (32.0-36.0); Mean Corpuscular Volume 77.5 fL (80.0-100.0); Monocytes # (auto) 0.4 10 ^3/uL (0-1.3); Monocytes % (auto) 6.2 % (0.0-12.0); Nucleated Red Blood Cells % 0.1 %; Red Blood Cells 4.23 10^6/uL (4.0-5.20); Red Cell Distribution Width 16.8 % (11.8-14.3)
[2022-08-19 12:35] LABS: Albumin 3.7 g/dL (3.4-5.0); BUN/Creatinine Ratio 19.4; Calcium 8.9 mg/dL (8.5-10.1); Potassium 3.9 mmol/L (3.5-5.1)
[2022-08-19 12:37] LABS: Bilirubin, Total 0.4 mg/dL (0.2-1.0); Total Protein 7.6 g/dL (6.4-8.2)
[2022-08-19 12:41] LABS: INR 0.9 (0.9-1.15); Partial Thromboplastin Time 36.2 sec (24.6-33.4)
[2022-08-19 12:48] LABS: Urine Bacteria NONE SEEN /hpf (None Seen); Urine Blood Negative /uL (Negative); Urine Mucus FEW (None Seen); Urine Specific Gravity 1.027 (1.001-1.035); Urine WBC 2 /hpf (0 - 5)
[~2022-08-20] VITALS: Ht 172.7 cm; Wt 89.4 kg
[~2022-08-20] MED LIST changes: +BUME2TAB5 PO; +BUPIVACAINE 0.5% P/F INJ 10 ML VIAL ONE; +CITA10TA8 PO; +DexAMETHasone SOD PHOS 10MG/1ML VIAL INJ ONE; +HYDROmorphone HCL 2 MG/ML VL/or syr IV PRN; +LABETALOL HCL 5 MG/ML 4ML SYRINGE IV PRN; +LIDOCAINE W/ EPINEPHRINE 1% 20ML VIAL ONE; +MEPERIDINE HCL (50 MG/ML) 1 ML VIAL ONE; +MIDAZOLAM HCL 2MG/2ML 2ml VIAL (1mg/ml) IV PRN; +MIDAZOLAM HCL 2MG/2ML 2ml VIAL (1mg/ml) ONE; +MORPHINE SULFATE 4 MG/ML SYR/VIAL IV PRN; +ONDANSETRON HCL 4 MG/2 ML VIAL IV PRN; +ONDANSETRON HCL 4 MG/2 ML VIAL ONE; +PROPOFOL 10 MG/ML 20 ML IV ONE; +ceFAZolin 1GM/50ML 100 ML IV ONE; +ePHEDrine SULFATE 50 MG/ML AMP IV PRN; +fentaNYL CITRATE 100 MCG/2 ML VL ONE
[2022-08-20 12:30] VITALS: BP 138/78
== END | disposition home or self-care (01) ==
LOC: SUR 08:55
PROVIDERS: ATTEND Surgery
DX: K42.0 Umbilical hernia with obstruction, without gangrene (principal); Z90.710 Acquired absence of both cervix and uterus
CPT/HCPCS: 36415; 49592; 80053; 81001; 85025; 85610; 85730; 86850; 86900; 86901; J0690; J1100; J2175; J2250; J2405; J2704; J3010; J3490; U0003; J1956

== ENCOUNTER → 2022-09-22 | Outpatient (CLI) | payer OTHER, MEDICAID ==
[~2022-09-22] VITALS: Ht 172.7 cm; Wt 89.4 kg
[~2022-09-22] MED LIST changes: +ACETAMINOPHEN IV 1000 MG/100ML (10MG/ML) IV ONE; -BUPIVACAINE 0.5% P/F INJ 10 ML VIAL ONE; +CELECOXIB 100 MG CAP PO ONE; +EPINEPHrine HCL 1 MG/1 ML AMP ONE; -HYDROmorphone HCL 2 MG/ML VL/or syr IV PRN; -LABETALOL HCL 5 MG/ML 4ML SYRINGE IV PRN; -LIDOCAINE W/ EPINEPHRINE 1% 20ML VIAL ONE; -MEPERIDINE HCL (50 MG/ML) 1 ML VIAL ONE; -MIDAZOLAM HCL 2MG/2ML 2ml VIAL (1mg/ml) IV PRN; +MORPHINE SULF PF 5 MG/10 ML VIAL ONE; -MORPHINE SULFATE 4 MG/ML SYR/VIAL IV PRN; -ONDANSETRON HCL 4 MG/2 ML VIAL IV PRN; +PREGABALIN CAPSULE 75 MG CAP PO ONE; +SODIUM CHLORIDE LOCK 0 ML ONE; -ceFAZolin 1GM/50ML 100 ML IV ONE; -ePHEDrine SULFATE 50 MG/ML AMP IV PRN
== END | disposition home or self-care (01) ==
LOC: SUR 09:06 → EDSTATUS 09:45
PROVIDERS: ATTEND Orthopaedic Surgery Adult Reconstructive Orthopaedic Surgery
DX: Z20.822 Contact with and (suspected) exposure to COVID-19 (principal)
CPT/HCPCS: 86850; 86900; 86901; U0003; J0171; J1100; J2250; J2405; J2704

== ENCOUNTER 2023-06-10 09:34 | Day surgery (SDC) | payer OTHER, MEDICAID ==
[2023-05-19 16:02] LABS: Basophils # (auto) 0 10 ^3/uL (0-0.2); Basophils % (auto) 0.2 % (0.0-2.0); Eosinophils # (auto) 0.4 10 ^3/uL (0-0.8); Eosinophils % (auto) 4.8 % (0.0-7.0); Hematocrit 37.3 % (36.0-46.0); Hemoglobin 11.9 g/dL (12.2-16.2); Lymphocytes # (auto) 2.2 10 ^3/uL (0.4-5.4); Lymphocytes % (auto) 25.9 % (10.0-50.0); Mean Corpuscular Hemoglobin 25.8 pg (28.0-32.0); Mean Corpuscular Volume 80.6 fL (80.0-100.0); Monocytes # (auto) 0.6 10 ^3/uL (0-1.3); Neutrophils # (auto) 5.2 10 ^3/uL (1.6-8.6); Neutrophils % (auto) 62.1 % (37.0-80.0); Red Blood Cells 4.62 10^6/uL (4.0-5.20); White Blood Cell 8.4 10^3/uL (4.4-10.8)
[2023-05-19 16:03] LABS: Red Cell Distribution Width 21.5 % (11.8-14.3)
[2023-05-19 16:06] LABS: Urine Bacteria NONE SEEN /hpf (None Seen); Urine Blood Negative /uL (Negative); Urine Clarity Clear (Clear); Urine Color Yellow (Yellow); Urine Mucus FEW (None Seen); Urine Protein, UAD TRACE (Negative); Urine Specific Gravity 1.027 (1.001-1.035); Urine WBC 14 /hpf (0 - 5); Urine pH 5.5 (5.0-8.0)
[2023-05-19 16:20] LABS: INR 0.93 (0.9-1.15); Prothrombin Time 9.8 sec (9.3-11.8)
[2023-05-19 16:33] LABS: Alanine Aminotransferase 25 U/L (7-40); Albumin 4.6 g/dL (3.2-4.8); Alkaline Phosphatase 89 U/L (46-116); Anion Gap 6 (5-15); Aspartate Aminotransferase 25 U/L (13-40); BUN/Creatinine Ratio 14.3 (10.0-20.0); Blood Urea Nitrogen 11 mg/dL (9-23); Calcium 9.7 mg/dL (8.5-10.1); Carbon Dioxide 30 mmol/L (20-30); Chloride 104 mmol/L (98-107); Glucose 101 mg/dL (74-106); Potassium 3.8 mmol/L (3.5-5.1); Sodium 140 mmol/L (136-145)
[2023-05-19 16:35] LABS: Bilirubin, Total 0.3 mg/dL (0.2-1.0); Total Protein 7.6 g/dL (5.7-8.2)
[2023-06-09 14:37] LABS: Basophils # (auto) 0 10 ^3/uL (0-0.2); Eosinophils # (auto) 0.2 10 ^3/uL (0-0.8); Monocytes # (auto) 0.5 10 ^3/uL (0-1.3)
[2023-06-09 14:38] LABS: Basophils % (auto) 0.4 % (0.0-2.0); Eosinophils % (auto) 2.5 % (0.0-7.0); Hematocrit 38.3 % (36.0-46.0); Hemoglobin 12.4 g/dL (12.2-16.2); Lymphocytes # (auto) 2.3 10 ^3/uL (0.4-5.4); Lymphocytes % (auto) 25.3 % (10.0-50.0); Mean Corpuscular Hemoglobin 26.6 pg (28.0-32.0); Mean Corpuscular Hgb Conc. 32.4 g/dL (32.0-36.0); Mean Corpuscular Volume 82.2 fL (80.0-100.0); Monocytes % (auto) 5.8 % (0.0-12.0); Neutrophils # (auto) 5.9 10 ^3/uL (1.6-8.6); Nucleated Red Blood Cells % 0.1 %; Red Blood Cells 4.66 10^6/uL (4.0-5.20); Red Cell Distribution Width 18.7 % (11.8-14.3); White Blood Cell 8.9 10^3/uL (4.4-10.8)
[2023-06-09 14:47] LABS: INR 0.97 (0.9-1.15); Partial Thromboplastin Time 35.5 SEC (24.5-34.5); Prothrombin Time 10.2 sec (9.3-11.8); Urine Bacteria NONE SEEN /hpf (None Seen); Urine Blood Negative /uL (Negative); Urine Clarity Clear (Clear); Urine Color Yellow (Yellow); Urine Mucus FEW (None Seen); Urine Protein, UAD 1+ (Negative); Urine Specific Gravity 1.031 (1.001-1.035); Urine WBC 21 /hpf (0 - 5); Urine pH 5.5 (5.0-8.0)
[2023-06-09 15:07] LABS: Alanine Aminotransferase 30 U/L (7-40); Albumin 4.5 g/dL (3.2-4.8); Alkaline Phosphatase 86 U/L (46-116); Anion Gap 6 (5-15); Aspartate Aminotransferase 24 U/L (13-40); BUN/Creatinine Ratio 11.5 (10.0-20.0); Bilirubin, Total 0.2 mg/dL (0.2-1.0); Blood Urea Nitrogen 10 mg/dL (9-23); Calcium 9.7 mg/dL (8.5-10.1); Carbon Dioxide 29 mmol/L (20-30); Chloride 105 mmol/L (98-107); Glucose 94 mg/dL (74-106); Potassium 3.7 mmol/L (3.5-5.1); Sodium 140 mmol/L (136-145); Total Protein 7.3 g/dL (5.7-8.2)
[~2023-06-10] VITALS: Ht 172.7 cm; Wt 89.4 kg
[~2023-06-10 09:34] MED LIST changes: -ACETAMINOPHEN IV 1000 MG/100ML (10MG/ML) IV ONE; -CELECOXIB 100 MG CAP PO ONE; -DexAMETHasone SOD PHOS 10MG/1ML VIAL INJ ONE; -EPINEPHrine HCL 1 MG/1 ML AMP ONE; -MIDAZOLAM HCL 2MG/2ML 2ml VIAL (1mg/ml) ONE; -MORPHINE SULF PF 5 MG/10 ML VIAL ONE; -ONDANSETRON HCL 4 MG/2 ML VIAL ONE; -PREGABALIN CAPSULE 75 MG CAP PO ONE; -PROPOFOL 10 MG/ML 20 ML IV ONE; -SODIUM CHLORIDE LOCK 0 ML ONE; -fentaNYL CITRATE 100 MCG/2 ML VL ONE
[2023-06-10] MEDS ORDERED: ceFAZolin 2 GM/D5W100ml 100 ML IV ONE (10:18)
[2023-06-10] MEDS ORDERED: BUPIVACAINE 0.5% P/F INJ 10 ML VIAL ONE (14:59)
[2023-06-10] MEDS ORDERED: LIDOCAINE W/ EPINEPHRINE 1% 20ML VIAL ONE (14:59)
[2023-06-10] MEDS ORDERED: FAMOTIDINE (10MG/ML) 2ML VL IV ONE (15:25)
[2023-06-10] MEDS ORDERED: HYDROmorphone HCL 2 MG/ML VL/or syr ONE (15:28)
[2023-06-10] MEDS ORDERED: DexAMETHasone SOD PHOS 10MG/1ML VIAL INJ ONE (15:29)
[2023-06-10] MEDS ORDERED: MIDAZOLAM HCL 2MG/2ML 2ml VIAL (1mg/ml) ONE (15:29)
[2023-06-10] MEDS ORDERED: KETOROLAC TROMETH 60MG/2ML VIAL ONE (15:29)
[2023-06-10] MEDS ORDERED: ONDANSETRON HCL 4 MG/2 ML VIAL ONE (15:29)
[2023-06-10] MEDS ORDERED: LIDOCAINE 2% (LOCAL ANESTH.) PF 5ml SDV ONE (15:29)
[2023-06-10] MEDS ORDERED: GLYCOPYRROLATE 0.2 MG/ML 1ML VIAL ONE (15:29)
[2023-06-10] MEDS ORDERED: fentaNYL CITRATE 100 MCG/2 ML VL ONE (15:29)
[2023-06-10] MEDS ORDERED: ROCURONIUM 10MG/ML 10ML VIAL IV ONE (15:29)
[2023-06-10] MEDS ORDERED: PROPOFOL 10 MG/ML 20 ML IV ONE (15:29)
[2023-06-10] MEDS ORDERED: SUGAMMADEX 200mg/2ml Vial (100MG/ML) IV ONE (16:14)
[2023-06-10 16:38] VITALS: PULSE 85; RESP 17; TEMP 97.5; O2SAT 96
[2023-06-10] MEDS ORDERED: HYDROmorphone HCL 2 MG/ML VL/or syr IV PRN (16:45)
[2023-06-10] MEDS ORDERED: ONDANSETRON HCL 4 MG/2 ML VIAL IV PRN (16:45)
[2023-06-10] MEDS ORDERED: ALBUTEROL MEDNEB 2.5 mg/3ml NEB NEB ONE (17:30)
[2023-06-10] MEDS ORDERED: IPRATROPIUM BROM 0.5 MG/2.5ML INH SOL NEB ONE (17:30)
[2023-06-10] MEDS ORDERED: ALBUTEROL MEDNEB 2.5 mg/3ml NEB ONE (17:31)
[2023-06-10] MEDS ORDERED: IPRATROPIUM BROM 0.5 MG/2.5ML INH SOL ONE (17:31)
[2023-06-10 17:40] VITALS: PULSE 86; RESP 20; O2SAT 95
[2023-06-10 17:41] VITALS: O2SAT 96
[2023-06-10 18:55] VITALS: BP 147/78; PULSE 93; RESP 12; O2SAT 94
== END 2023-06-10 18:58 | disposition home or self-care (01) ==
LOC: SUR 09:34
PROVIDERS: ATTEND Surgery
DX: K42.9 Umbilical hernia without obstruction or gangrene (principal); Z98.890 Other specified postprocedural states; Z90.710 Acquired absence of both cervix and uterus; F31.9 Bipolar disorder, unspecified; K21.9 Gastro-esophageal reflux disease without esophagitis
CPT/HCPCS: 36415; 49615; 80053; 81001; 85025; 85610; 85730; 86850; 86900; 86901; 88302; 94640; J1100; J1170; J1885; J2001; J2250; J2405; J2704; J3010; J3490; J7644

== ENCOUNTER 2024-02-03 14:56 | Inpatient (IN) | payer OTHER, MEDICAID ==
[~2024-02-03] VITALS: Ht 172.7 cm; Wt 81.5 kg
[~2024-02-03 14:56] MED LIST changes: +POTA-36 PO; -POTA10TA51 PO
[2024-02-03] MEDS: MORPHINE SULFATE 4 MG/ML SYR/VIAL IV ONE (16:27)
[2024-02-03] MEDS: ONDANSETRON HCL 4 MG/2 ML VIAL IV ONE (16:28)
[2024-02-03] MEDS: VANCOMYCIN 1GM/200ML 200 ML IV ONE (16:28)
[2024-02-03] MEDS: SODIUM CHLORIDE 0.9% 1,000 ML IV ONE (16:28)
[2024-02-03 16:57] LABS: Basophils # (auto) 0 10 ^3/uL (0-0.2); Basophils % (auto) 0.1 % (0.0-2.0); Eosinophils # (auto) 0.1 10 ^3/uL (0-0.8); Eosinophils % (auto) 0.7 % (0.0-7.0); Hematocrit 35.4 % (36.0-46.0); Hemoglobin 11.3 g/dL (12.2-16.2); Lymphocytes # (auto) 1.4 10 ^3/uL (0.4-5.4); Lymphocytes % (auto) 15.3 % (10.0-50.0); Mean Corpuscular Hemoglobin 25.5 pg (28.0-32.0); Mean Corpuscular Volume 79.6 fL (80.0-100.0); Monocytes # (auto) 0.7 10 ^3/uL (0-1.3); Monocytes % (auto) 7.7 % (0.0-12.0); Neutrophils # (auto) 7.2 10 ^3/uL (1.6-8.6); Neutrophils % (auto) 76.2 % (37.0-80.0); Nucleated Red Blood Cells % 0.1 %; Red Blood Cells 4.44 10^6/uL (4.0-5.20); Red Cell Distribution Width 15.3 % (11.8-14.3); White Blood Cell 9.4 10^3/uL (4.4-10.8)
[2024-02-03 17:05] LABS: Chloride 103 mmol/L (98-107); Potassium 3.7 mmol/L (3.5-5.1); Sodium 136 mmol/L (136-145)
[2024-02-03 17:06] LABS: Anion Gap 7 (5-15); Carbon Dioxide 26 mmol/L (20-30)
[2024-02-03 17:07] LABS: Calcium 9.2 mg/dL (8.5-10.1)
[2024-02-03 17:11] LABS: BUN/Creatinine Ratio 13.5 (10.0-20.0); Blood Urea Nitrogen 10 mg/dL (9-23); Glucose 116 mg/dL (74-106)
[2024-02-03 19:25] VITALS: PULSE 78; RESP 20; O2SAT 96
[2024-02-03 19:45] VITALS: PULSE 81; RESP 14; O2SAT 95
[2024-02-03 21:02] LABS: Urine Bacteria None Seen /hpf (None Seen)
[2024-02-03 21:35] LABS: Urine Blood Negative /uL (Negative); Urine Clarity Clear (Clear); Urine Color Yellow (Yellow); Urine Hyaline Cast FEW /lpf (0 - 2); Urine Mucus FEW (None Seen); Urine Protein, UAD 1+ (Negative); Urine Specific Gravity 1.037 (1.001-1.035); Urine Urobilinogen 2 mg/dL (Negative); Urine WBC 5 /hpf (0 - 5); Urine pH 5.5 (5.0-9.0)
[2024-02-03] MEDS ORDERED: ACETAMINOPHEN 325 MG TAB PO PRN (21:45)
[2024-02-03] MEDS: CLINDAMYCIN 600MG IV 50 ML IV SCH (22:31)
[2024-02-03] MEDS: ONDANSETRON HCL 4 MG/2 ML VIAL IV PRN (22:37)
[2024-02-03] MEDS: HYDROcodone-ACET 5/325MG TAB PO ONE (22:38)
[2024-02-04] VITALS (8 sets, daily range): BP systolic 107–122; BP diastolic 53–69; PULSE 67–87; RESP 15–20; TEMP 97.5–99.1; O2SAT 92–97
[2024-02-04] MEDS ORDERED: LISI20TA56 PO (04:16)
[2024-02-04] MEDS ORDERED: CITA-73 PO (04:19)
[2024-02-04] MEDS ORDERED: BUPR75TA96 PO (04:19)
[2024-02-04] MEDS ORDERED: BUMEX2MG PO (04:19)
[2024-02-04] MEDS: HYDROcodone-ACET 5/325MG TAB PO PRN (06:54)
[2024-02-04 07:13] LABS: Basophils # (auto) 0 10 ^3/uL (0-0.2); Eosinophils # (auto) 0.2 10 ^3/uL (0-0.8); Monocytes # (auto) 0.7 10 ^3/uL (0-1.3)
[2024-02-04 07:17] LABS: Basophils % (auto) 0.3 % (0.0-2.0); Eosinophils % (auto) 2.3 % (0.0-7.0); Hematocrit 31.2 % (36.0-46.0); Lymphocytes # (auto) 1.7 10 ^3/uL (0.4-5.4); Mean Corpuscular Hemoglobin 25.6 pg (28.0-32.0); Mean Corpuscular Hgb Conc. 32.2 g/dL (32.0-36.0); Mean Corpuscular Volume 79.5 fL (80.0-100.0); Monocytes % (auto) 10.3 % (0.0-12.0); Neutrophils # (auto) 3.9 10 ^3/uL (1.6-8.6); Neutrophils % (auto) 61.1 % (37.0-80.0); Red Blood Cells 3.92 10^6/uL (4.0-5.20); Red Cell Distribution Width 15.7 % (11.8-14.3); White Blood Cell 6.4 10^3/uL (4.4-10.8)
[2024-02-04 07:41] LABS: Anion Gap 6 (5-15); Carbon Dioxide 28 mmol/L (20-30); Chloride 104 mmol/L (98-107); Potassium 3.3 mmol/L (3.5-5.1); Sodium 138 mmol/L (136-145)
[2024-02-04 07:47] LABS: BUN/Creatinine Ratio 14.7 (10.0-20.0); Blood Urea Nitrogen 10 mg/dL (9-23); Glucose 101 mg/dL (74-106)
[2024-02-04] MEDS: cefTRIAXone 1GM/50ML D5W 50 ML IV SCH (08:45)
[2024-02-04] MEDS: LISINOPRIL 20 MG TAB PO SCH (10:07)
[2024-02-04] MEDS: FUROSEMIDE 20 MG TAB PO SCH (10:07)
[2024-02-04] MEDS: OXYCODONE W/ ACETAMINOPHEN 5/325MG TABLET PO PRN (13:09)
[2024-02-04 19:42] LABS: INR 1.03 (0.9-1.15); Partial Thromboplastin Time 34.2 SEC (24.5-34.5); Prothrombin Time 10.9 sec (9.3-11.8)
[2024-02-05] VITALS (8 sets, daily range): BP systolic 95–131; BP diastolic 50–71; PULSE 72–90; RESP 12–20; TEMP 75–98.6; O2SAT 93–100
[2024-02-05] MEDS ORDERED: PROPOFOL 10 MG/ML 20 ML IV ONE (07:08)
[2024-02-05] MEDS ORDERED: MEPERIDINE HCL (50 MG/ML) 1 ML VIAL ONE (07:09)
[2024-02-05] MEDS ORDERED: fentaNYL CITRATE 100 MCG/2 ML VL ONE (07:09)
[2024-02-05] MEDS: BUPIVACAINE HCL 0.25% P/F 10 ML VIAL ONE (07:30)
[2024-02-05] MEDS: LIDOCAINE 1% HCL (LOCAL ANESTH.) INJ 20ML MDV ONE (07:30)
[2024-02-05] MEDS ORDERED: ePHEDrine SULFATE 50 MG/ML AMP ONE (07:45)
[2024-02-05] MEDS ORDERED: MEPERIDINE HCL (25 MG/ML) 1ML VIAL IV PRN (08:15)
[2024-02-05] MEDS ORDERED: HYDROmorphone HCL 2 MG/ML VL/or syr IV PRN (08:15)
[2024-02-05] MEDS: ONDANSETRON HCL 4 MG/2 ML VIAL IV ONE (08:50)
[2024-02-06] VITALS (7 sets, daily range): BP systolic 104–142; BP diastolic 52–71; PULSE 67–78; RESP 16–20; TEMP 97.9–98.2; O2SAT 93–96
[2024-02-06] MEDS: buPROPion HCL 75 MG TAB PO SCH (08:57)
[2024-02-06] MEDS: CITALOPRAM HYDROBR 20 MG TAB PO SCH (08:57)
[2024-02-06 12:14] LABS: COVID19 ANTIGEN SOFIA FIA NEGATIVE (NEGATIVE)
[2024-02-07 00:47] VITALS: BP 126/64; PULSE 75; RESP 17; TEMP 97.9; O2SAT 96
[2024-02-07 05:00] VITALS: BP 132/59; PULSE 75; RESP 18; TEMP 98.3; O2SAT 93
[2024-02-07] MEDS: PANTOPRAZOLE 40 MG TAB PO SCH (05:42)
[2024-02-07] MEDS: LACTULOSE 20Gm/30ML SOLN PO ONE (09:45)
[2024-02-07] MEDS: DOCUSATE SOD 100 MG CAP PO SCH (10:00)
[2024-02-07 17:00] VITALS: BP 109/59; PULSE 76; RESP 18; TEMP 98.2; O2SAT 96
[2024-02-07 20:00] VITALS: PULSE 69; RESP 17; O2SAT 93
[2024-02-07 21:00] VITALS: BP 135/64; PULSE 69; RESP 17; TEMP 98.3; O2SAT 93
[2024-02-08 01:00] VITALS: BP 136/68; PULSE 70; RESP 18; TEMP 98.4; O2SAT 94
[2024-02-08 05:00] VITALS: BP 147/80; PULSE 72; RESP 17; TEMP 98.2; O2SAT 96
[2024-02-08 08:25] VITALS: PULSE 66; RESP 18; O2SAT 94
[2024-02-08 10:10] VITALS: BP 109/51; PULSE 66; RESP 18; TEMP 98.1; O2SAT 94
== END 2024-02-08 13:00 | DRG 571 ==
LOC: ER 14:56 → EDBD 14:56 → CENTRAL 22:26 → OVERFLOW 22:26 → CENTRAL 02-04 03:00
PROVIDERS: ADMIT Nurse Practitioner; ATTEND Family Medicine
PROC: 0JBR0ZZ Excision of Left Foot Subcutaneous Tissue and Fascia, Open Approach (ICD-10-PCS; 2024-02-05)
PROC: 0JBP0ZZ Excision of Left Lower Leg Subcutaneous Tissue and Fascia, Open Approach (ICD-10-PCS; principal; 2024-02-05 07:20)
DX: L97.529 Non-pressure chronic ulcer of other part of left foot with unspecified severity (principal); I50.32 Chronic diastolic (congestive) heart failure; I11.0 Hypertensive heart disease with heart failure; M16.12 Unilateral primary osteoarthritis, left hip; F32.A Depression, unspecified; Z87.891 Personal history of nicotine dependence; Z96.641 Presence of right artificial hip joint; Z90.710 Acquired absence of both cervix and uterus; Z82.49 Family history of ischemic heart disease and other diseases of the circulatory system; Z82.3 Family history of stroke; Z81.8 Family history of other mental and behavioral disorders
CPT/HCPCS: 36415; 71045; 73502; 73590; 73620; 80048; 81001; 83605; 85025; 85610; 85730; 86850; 86900; 86901; 87040; 87070; 87075; 87077; 87186; 87205; 87426; 93306; 93925; 93971; 97110; 97116; 97163; G0378; J2001; J2405; J2704; J3490

== ENCOUNTER 2024-04-15 10:28 | Inpatient (IN) | payer OTHER, MEDICAID ==
[~2024-04-15] VITALS: Ht 172.7 cm; Wt 89.5 kg
[~2024-04-15 10:28] MED LIST changes: -BUME2TAB5 PO; +BUMEX2MG PO; +BUPR75TA96 PO; +CITA-73 PO; -CITA10TA8 PO; -FURO1TAB33 PO; +LISI20TA56 PO
[2024-04-15] MEDS ORDERED: VANCOMYCIN PER PHARMACY 0 MG IV SCH (11:15)
[2024-04-15 11:43] LABS: Basophils # (auto) 0 10 ^3/uL (0-0.2); Basophils % (auto) 0.2 % (0.0-2.0); Eosinophils # (auto) 0.2 10 ^3/uL (0-0.8); Eosinophils % (auto) 1.5 % (0.0-7.0); Neutrophils # (auto) 7.1 10 ^3/uL (1.6-8.6)
[2024-04-15 11:45] LABS: Hemoglobin 11.5 g/dL (12.2-16.2); Lymphocytes % (auto) 20.2 % (10.0-50.0); Mean Corpuscular Hemoglobin 25.3 pg (28.0-32.0); Mean Corpuscular Volume 79.1 fL (80.0-100.0); Monocytes # (auto) 0.8 10 ^3/uL (0-1.3); Monocytes % (auto) 7.7 % (0.0-12.0); Neutrophils % (auto) 70.4 % (37.0-80.0); Nucleated Red Blood Cells % 0.1 %; Platelet Count (auto) 397 10^3/uL (140-450); Red Blood Cells 4.56 10^6/uL (4.0-5.20); Red Cell Distribution Width 17.1 % (11.8-14.3); White Blood Cell 10.1 10^3/uL (4.4-10.8)
[2024-04-15 11:55] VITALS: PULSE 84; RESP 19; O2SAT 98
[2024-04-15 12:10] LABS: Alanine Aminotransferase 16 U/L (7-40); Albumin 4.6 g/dL (3.2-4.8); Alkaline Phosphatase 103 U/L (46-116); Anion Gap 7 (5-15); Aspartate Aminotransferase 11 U/L (13-40); BUN/Creatinine Ratio 20.3 (10.0-20.0); Bilirubin, Total 0.3 mg/dL (0.2-1.0); Blood Urea Nitrogen 15 mg/dL (9-23); Calcium 9.9 mg/dL (8.7-10.4); Carbon Dioxide 28 mmol/L (20-30); Chloride 102 mmol/L (98-107); Glucose 93 mg/dL (74-106); Potassium 3.8 mmol/L (3.5-5.1); Sodium 137 mmol/L (136-145); Total Protein 7.8 g/dL (5.7-8.2)
[2024-04-15 12:18] LABS: CRP High Sensitivity 1.82 mg/dL (<1.0)
[2024-04-15 12:28] LABS: Erythrocyte Sedimentation Rate 61 mm/hr (0-20)
[2024-04-15] MEDS: VANCOMYCIN 1.5GM/300ML 300 ML IV ONE (12:44)
[2024-04-15] MEDS: PIPERACILLIN-TAZOB 3.375GM 100 ML IV ONE (12:45)
[2024-04-15] MEDS: MORPHINE SULFATE INJ 2 MG/ml SYRG IV ONE (12:45)
[2024-04-15] MEDS: ONDANSETRON HCL 4 MG/2 ML VIAL IV ONE (12:46)
[2024-04-15] MEDS ORDERED: NITROGLYCERIN 0.4 MG SL TAB SL PRN (14:00)
[2024-04-15] MEDS ORDERED: DOCUSATE SOD 100 MG CAP PO PRN (14:00)
[2024-04-15] MEDS: SODIUM CHLORIDE 0.9% 1,000 ML IV SCH (14:19)
[2024-04-15] MEDS: MORPHINE SULFATE INJ 2 MG/ml SYRG IV PRN (17:15)
[2024-04-15 19:20] VITALS: PULSE 76; RESP 16; O2SAT 98
[2024-04-15 23:52] VITALS: BP 137/51; PULSE 76; RESP 20; TEMP 98.7; O2SAT 98
[2024-04-16] VITALS (9 sets, daily range): BP systolic 126–152; BP diastolic 60–88; PULSE 68–86; RESP 16–20; TEMP 97.9–98.7; O2SAT 95–98
[2024-04-16] MEDS: VANCOMYCIN 1GM/200ML 200 ML IV SCH (00:18)
[2024-04-16 06:17] LABS: Basophils # (auto) 0 10 ^3/uL (0-0.2); Hemoglobin 10.3 g/dL (12.2-16.2); Lymphocytes # (auto) 2.1 10 ^3/uL (0.4-5.4); Monocytes # (auto) 0.6 10 ^3/uL (0-1.3); Neutrophils # (auto) 4.7 10 ^3/uL (1.6-8.6); White Blood Cell 7.6 10^3/uL (4.4-10.8)
[2024-04-16 06:22] LABS: Basophils % (auto) 0.3 % (0.0-2.0); Eosinophils # (auto) 0.2 10 ^3/uL (0-0.8); Eosinophils % (auto) 2.9 % (0.0-7.0); Hematocrit 31.6 % (36.0-46.0); Lymphocytes % (auto) 27.7 % (10.0-50.0); Mean Corpuscular Hemoglobin 25.7 pg (28.0-32.0); Mean Corpuscular Hgb Conc. 32.5 g/dL (32.0-36.0); Monocytes % (auto) 7.3 % (0.0-12.0); Neutrophils % (auto) 61.8 % (37.0-80.0); Nucleated Red Blood Cells % 0.1 %; Platelet Count (auto) 307 10^3/uL (140-450)
[2024-04-16 06:37] LABS: Alkaline Phosphatase 85 U/L (46-116); Anion Gap 7 (5-15); Blood Urea Nitrogen 14 mg/dL (9-23); Calcium 9.3 mg/dL (8.7-10.4); Carbon Dioxide 25 mmol/L (20-30); Chloride 108 mmol/L (98-107); Glucose 93 mg/dL (74-106); Potassium 3.8 mmol/L (3.5-5.1); Sodium 140 mmol/L (136-145)
[2024-04-16 06:38] LABS: Aspartate Aminotransferase 8 U/L (13-40); Bilirubin, Total 0.3 mg/dL (0.2-1.0); Total Protein 6.7 g/dL (5.7-8.2)
[2024-04-16 06:42] LABS: Alanine Aminotransferase < 9 U/L (7-40)
[2024-04-16] MEDS: ENOXAPARIN SOD 40 MG/0.4 ML SYRINGE SC SCH (10:20)
[2024-04-16] MEDS: PIPERACILLIN-TAZOB 3.375GM 100 ML IV SCH (14:24)
[2024-04-17 01:00] VITALS: BP 125/74; PULSE 79; RESP 18; TEMP 98.2; O2SAT 95
[2024-04-17 05:00] VITALS: BP 136/75; PULSE 64; RESP 18; TEMP 97.6; O2SAT 96
[2024-04-17 06:50] LABS: Calcium 9.1 mg/dL (8.7-10.4); Chloride 109 mmol/L (98-107); Potassium 3.9 mmol/L (3.5-5.1); Sodium 141 mmol/L (136-145)
[2024-04-17 06:51] LABS: Anion Gap 11 (5-15); Carbon Dioxide 21 mmol/L (20-30)
[2024-04-17 06:56] LABS: BUN/Creatinine Ratio 16.7 (10.0-20.0); Blood Urea Nitrogen 11 mg/dL (9-23); Glucose 89 mg/dL (74-106)
[2024-04-17 08:00] VITALS: PULSE 65; RESP 16; O2SAT 96
[2024-04-17 12:00] VITALS: BP 133/91; PULSE 68; RESP 17; TEMP 97.6; O2SAT 95
[2024-04-17 20:00] VITALS: PULSE 65; RESP 16; O2SAT 96
[2024-04-17 21:00] VITALS: BP 138/71; PULSE 73; TEMP 97.8; O2SAT 95
[2024-04-18] VITALS (16 sets, daily range): BP systolic 137–171; BP diastolic 64–88; PULSE 57–71; RESP 12–20; TEMP 97.9–98.8; O2SAT 95–100
[2024-04-18 06:15] LABS: Basophils # (auto) 0 10 ^3/uL (0-0.2); Basophils % (auto) 0.3 % (0.0-2.0); Eosinophils # (auto) 0.2 10 ^3/uL (0-0.8); Eosinophils % (auto) 3.2 % (0.0-7.0); Hematocrit 31.1 % (36.0-46.0); Hemoglobin 10.2 g/dL (12.2-16.2); Lymphocytes % (auto) 28.7 % (10.0-50.0); Mean Corpuscular Hemoglobin 25.9 pg (28.0-32.0); Mean Corpuscular Hgb Conc. 32.8 g/dL (32.0-36.0); Mean Corpuscular Volume 78.9 fL (80.0-100.0); Monocytes # (auto) 0.5 10 ^3/uL (0-1.3); Monocytes % (auto) 7.7 % (0.0-12.0); Neutrophils # (auto) 4.3 10 ^3/uL (1.6-8.6); Neutrophils % (auto) 60.1 % (37.0-80.0); Nucleated Red Blood Cells % 0.1 %; Platelet Count (auto) 283 10^3/uL (140-450); Red Blood Cells 3.94 10^6/uL (4.0-5.20); Red Cell Distribution Width 17.3 % (11.8-14.3); White Blood Cell 7.1 10^3/uL (4.4-10.8)
[2024-04-18 08:53] LABS: Prothrombin Time 10.6 sec (9.3-11.8)
[2024-04-18] MEDS: IODIXANOL 320MG/ML 100ML BTL IV ONE ×3 (09:09→10:24)
[2024-04-18] MEDS: HEPARIN IN NS 1000Units/500mL 1,500 ML ONE (09:09)
[2024-04-18] MEDS: IOHEXOL 350 MG/ML 100ML IJ ONE (09:11)
[2024-04-18] MEDS: ANGIOMAX 250 MG VIAL IV ONE (10:54)
[2024-04-18] MEDS: fentaNYL CITRATE 100 MCG/2 ML VL ONE (10:54)
[2024-04-18] MEDS: MIDAZOLAM HCL 2MG/2ML 2ml VIAL (1mg/ml) ONE (10:55)
[2024-04-18] MEDS: SODIUM CHL 0.9% 0 ML ONE (10:55)
[2024-04-18] MEDS: LIDOCAINE 2%HCL (LOCAL ANESTH.) INJ 20ML MDV ONE (11:01)
[2024-04-18] MEDS: HEPARIN SODIUM (PORCINE) 5000 UNITS/ML 1ML VIAL ONE ×3 (11:16→11:47)
[2024-04-18] MEDS: CLOPIDOGREL BISULFATE 75 MG TAB ONE (12:28)
[2024-04-18] MEDS: MORPHINE SULFATE 4 MG/ML SYR/VIAL ONE (13:35)
[2024-04-18] MEDS ORDERED: HYDROcodone-ACET 10/325MG TAB PO PRN (17:00)
[2024-04-18 18:20] LABS: Basophils # (auto) 0 10 ^3/uL (0-0.2); Basophils % (auto) 0.2 % (0.0-2.0); Eosinophils # (auto) 0.2 10 ^3/uL (0-0.8); Hemoglobin 10.1 g/dL (12.2-16.2); Monocytes # (auto) 0.8 10 ^3/uL (0-1.3)
[2024-04-18 18:21] LABS: Eosinophils % (auto) 1.4 % (0.0-7.0); Hematocrit 31.9 % (36.0-46.0); Lymphocytes # (auto) 1.9 10 ^3/uL (0.4-5.4); Lymphocytes % (auto) 16.8 % (10.0-50.0); Mean Corpuscular Hemoglobin 25.1 pg (28.0-32.0); Mean Corpuscular Hgb Conc. 31.6 g/dL (32.0-36.0); Mean Corpuscular Volume 79.4 fL (80.0-100.0); Monocytes % (auto) 6.7 % (0.0-12.0); Neutrophils # (auto) 8.6 10 ^3/uL (1.6-8.6); Neutrophils % (auto) 74.9 % (37.0-80.0); Platelet Count (auto) 309 10^3/uL (140-450); Red Blood Cells 4.02 10^6/uL (4.0-5.20); Red Cell Distribution Width 17.1 % (11.8-14.3); White Blood Cell 11.5 10^3/uL (4.4-10.8)
[2024-04-18] MEDS: MORPHINE SULFATE 4 MG/ML SYR/VIAL IV PRN (20:30)
[2024-04-18] MEDS: ONDANSETRON HCL 4 MG/2 ML VIAL IV PRN (22:27)
[2024-04-19] VITALS (8 sets, daily range): BP systolic 114–150; BP diastolic 60–78; PULSE 65–97; RESP 18–20; TEMP 97.8–98.3; O2SAT 91–96
[2024-04-19] MEDS ORDERED: CLOPIDOGREL BISULFATE 75 MG TAB PO SCH (10:00)
[2024-04-19] MEDS: CLOPIDOGREL BISULFATE 75 MG TAB PO SCH (11:58)
[2024-04-19] MEDS: OXYCODONE W/ ACETAMINOPHEN 5/325MG TABLET PO PRN (11:59)
[2024-04-20] VITALS (7 sets, daily range): BP systolic 104–150; BP diastolic 51–89; PULSE 64–78; RESP 16–20; TEMP 98–99; O2SAT 92–99
[2024-04-20 06:58] LABS: Anion Gap 6 (5-15); Carbon Dioxide 25 mmol/L (20-30); Chloride 108 mmol/L (98-107); Potassium 3.4 mmol/L (3.5-5.1); Sodium 139 mmol/L (136-145)
[2024-04-20 06:59] LABS: Calcium 8.9 mg/dL (8.7-10.4)
[2024-04-20 07:04] LABS: Blood Urea Nitrogen 9 mg/dL (9-23); Glucose 112 mg/dL (74-106)
[2024-04-20] MEDS ORDERED: ceFAZolin 2 GM/D5W100ml 100 ML IV ONE (11:25)
[2024-04-20] MEDS ORDERED: MIDAZOLAM HCL 2MG/2ML 2ml VIAL (1mg/ml) ONE (12:53)
[2024-04-20] MEDS ORDERED: fentaNYL CITRATE 100 MCG/2 ML VL ONE ×2 (12:53→13:51)
[2024-04-20] MEDS ORDERED: KETAMINE 50mg/ML 1ml syringe ONE (12:58)
[2024-04-20] MEDS: BUPIVACAINE 0.5% MPF INJ 30ML SDV IJ ONE (13:00)
[2024-04-20] MEDS ORDERED: ONDANSETRON HCL 4 MG/2 ML VIAL ONE (13:36)
[2024-04-20] MEDS ORDERED: PROPOFOL 10 MG/ML 20 ML IV ONE (13:38)
[2024-04-20] MEDS ORDERED: HYDROmorphone HCL 2 MG/ML VL/or syr IV PRN ×2 (13:45)
[2024-04-20] MEDS ORDERED: ONDANSETRON HCL 4 MG/2 ML VIAL IV ONE (13:45)
[2024-04-21 01:00] VITALS: BP 155/82; PULSE 69; RESP 16; TEMP 98.9; O2SAT 96
[2024-04-21 05:00] VITALS: BP 132/73; PULSE 68; RESP 16; TEMP 98.5; O2SAT 93
[2024-04-21 07:04] LABS: Chloride 109 mmol/L (98-107); Potassium 3.4 mmol/L (3.5-5.1); Sodium 141 mmol/L (136-145)
[2024-04-21 07:05] LABS: Anion Gap 6 (5-15); Carbon Dioxide 26 mmol/L (20-30)
[2024-04-21 07:06] LABS: Calcium 8.8 mg/dL (8.7-10.4)
[2024-04-21 07:11] LABS: BUN/Creatinine Ratio 10.4 (10.0-20.0); Blood Urea Nitrogen 7 mg/dL (9-23); Glucose 92 mg/dL (74-106)
[2024-04-21] MEDS: Juven Orange Powder PACKET 27.5gm PO SCH (08:00)
[2024-04-21 08:37] VITALS: BP 131/74; PULSE 68; RESP 20; TEMP 98.8; O2SAT 95
[2024-04-21] MEDS ORDERED: CLIN1CAP70 PO (11:40)
[2024-04-21] MEDS ORDERED: PERCOT PO (11:40)
[2024-04-21] MEDS ORDERED: CEPH500C PO (11:40)
[2024-04-21 12:36] VITALS: BP 151/57; PULSE 69; RESP 16; TEMP 97.9; O2SAT 93
== END 2024-04-21 13:10 | disposition home health service (06) | DRG 253 ==
LOC: ER 10:28 → OVERFLOW 14:02 → WEST WING 23:48
PROVIDERS: ADMIT Nurse Practitioner Family; ATTEND Family Medicine
PROC: B51C1ZZ Fluoroscopy of Left Lower Extremity Veins using Low Osmolar Contrast (ICD-10-PCS; principal; 2024-04-18)
PROC: 047J3DZ Dilation of Left External Iliac Artery with Intraluminal Device, Percutaneous Approach (ICD-10-PCS; 2024-04-18)
PROC: B54CZZ3 Ultrasonography of Left Lower Extremity Veins, Intravascular (ICD-10-PCS; 2024-04-18)
PROC: 0KBT0ZZ Excision of Left Lower Leg Muscle, Open Approach (ICD-10-PCS; 2024-04-20)
PROC: 0HBLXZX Excision of Left Lower Leg Skin, External Approach, Diagnostic (ICD-10-PCS; 2024-04-20)
DX: I73.9 Peripheral vascular disease, unspecified (principal); E44.0 Moderate protein-calorie malnutrition; I87.1 Compression of vein; L03.116 Cellulitis of left lower limb; I87.2 Venous insufficiency (chronic) (peripheral); I10 Essential (primary) hypertension; M16.0 Bilateral primary osteoarthritis of hip; Z79.02 Long term (current) use of antithrombotics/antiplatelets; Z87.891 Personal history of nicotine dependence; Z90.710 Acquired absence of both cervix and uterus; Z82.49 Family history of ischemic heart disease and other diseases of the circulatory system; Z82.3 Family history of stroke; Z81.8 Family history of other mental and behavioral disorders; Z68.29 Body mass index [BMI] 29.0-29.9, adult
CPT/HCPCS: 36011; 36012; 37221; 37252; 96365; 96368; 96375; 99285; G0278; 36415; 71045; 73630; 80048; 80053; 80202; 82565; 83605; 83880; 85025; 85610; 85652; 86141; 93925; 99152; G0378; J2250; J2405; J2543; J2704; J3490; Q9967

== ENCOUNTER → 2025-02-15 | Day surgery (SDC) | payer OTHER, MEDICAID ==
[2025-02-10 14:13] LABS: Hemoglobin 11.0 g/dL (12.2-16.2); Mean Corpuscular Hemoglobin 25.0 pg (28.0-32.0)
[2025-02-10 14:14] LABS: Hematocrit 34.3 % (36.0-46.0); Mean Corpuscular Volume 78.5 fL (80.0-100.0); Nucleated Red Blood Cells % 0.0 %
[2025-02-10 14:15] LABS: Urine Protein, UAD Negative (Negative)
[2025-02-10 14:28] LABS: INR 0.94 (0.9-1.15); Partial Thromboplastin Time 32.2 SEC (24.5-34.5); Prothrombin Time 10.0 sec (9.3-11.8)
[2025-02-10 14:41] LABS: Alanine Aminotransferase 17 U/L (7-40); Albumin 4.5 g/dL (3.2-4.8); Alkaline Phosphatase 88 U/L (46-116); Anion Gap 5 (5-15); BUN/Creatinine Ratio 18.4 (10.0-20.0); Blood Urea Nitrogen 14 mg/dL (9-23); Calcium 10.2 mg/dL (8.7-10.4); Carbon Dioxide 30 mmol/L (20-31); Chloride 106 mmol/L (98-107); Glucose 82 mg/dL (74-106); Potassium 3.9 mmol/L (3.5-5.1); Sodium 141 mmol/L (136-145); Total Protein 7.1 g/dL (5.7-8.2)
[2025-02-10 14:42] LABS: Bilirubin, Total 0.3 mg/dL (0.2-1.0)
[~2025-02-15] VITALS: Ht 172.7 cm; Wt 78.5 kg
[~2025-02-15] MED LIST changes: +ACETAMINOPHEN IV 100 ML IV ONE; -BUMEX2MG PO; +CELECOXIB 100 MG CAP ONE; +CLOP75TA70 PO; +DOXY-286 PO; +FLUMAZENIL 0.1 MG/ML INJ 10ML MDV IV PRN; +GABAPENTIN 300 MG CAP ONE; +GLYCOPYRROLATE 0.2 MG/ML 1ML VIAL ONE; +HYDROmorphone HCL 2 MG/ML VL/or syr IV PRN; +KETOROLAC TROMETH 30 MG/ML 1ML VIAL ONE; +LIDOCAINE 1% INJ PF 5ML AMP ONE; +NALOXONE HCL 0.4 MG/ML VIAL IV PRN; +ONDANSETRON HCL 4 MG/2 ML VIAL IV PRN; +ONDANSETRON HCL 4 MG/2 ML VIAL ONE; -POTA-36 PO; +PROPOFOL 10 MG/ML 20 ML IV ONE; +ceFAZolin 2 GM/D5W50ml 50 ML IV ONE; +fentaNYL CITRATE 100 MCG/2 ML VL IV PRN; +hydrALAZINE HCL 20 MG/ML VL IV PRN
--- NOTE | 2025-02-15 10:43 | DVHOP2 ---
Operative Report - 2 Report Details Date: 02/15/25 Preop Diagnosis: 1. Left foot bunion 2. Left foot second hammer toe 3. Right foot bunion 4. Bilateral foot pain Postop Diagnosis: Same as preop Surgeon: Erick Medrano MD Anesthesiologist: See anesthesia Anesthesia: General Implant: 2 mm steimann pin x 2 Arthrex flex wire x1 Consent: The patient was informed of the risks and benefits of the procedure. These include but are not limited to complications of anesthesia, postoperative infection, incomplete relief of symptoms, recurrence of symptoms, damage to blood vessels, nerves and tendons, deep venous thrombosis, pulmonary embolism and possible need for repeat surgery in the future. Complications: None Estimated Blood Loss: Minimal Fluids: See anesthesia Findings: Consistent with the diagnosis Indications for Surgery: Worsening bilateral foot pain Name of Procedure Performed 1. Left foot bunionectomy (19316) 2. Right foot bunionectomy (38629) 3. Right foot second hammer toe repair (30747) 4. Right foot second correction of angular deformity (39385) Procedure Details Procedure Details: PRE-PROCEDURE INFORMATION: In the pre-op holding area, the extremity to be operated on was clearly marked and the patient verified correct laterality of the marking. The patient was transferred to the OR table and placed in a supine position. A timeout was performed in which identification of the correct patient, procedure, location, and materials was done. The bilateral foot and leg were prepped and draped in normal sterile fashion. DESCRIPTION OF PROCEDURE: Attention was directed to the left 1st metatarsophalangeal joint where a stab incision was made at the neck of the 1st metatarsal. Care was taken to avoid damage the neurovascular and tendinous structures. Using intraoperative fluoroscopy and an MIS per, an osteotomy was then made at the neck of the 1st metatarsal. The metatarsal head was then shifted into position aligning the sesamoid bones over the fragment. Using a 2 mm steimann pin, the wire was then driven down the shaft of the 1st metatarsal to hold the head in place until the osteotomy has healed. Fluoroscopy verified proper placement of hardware as well as correction of previous bunion deformity. Attention was directed to the right 1st metatarsophalangeal joint where a stab incision was made at the neck of the 1st metatarsal. Care was taken to avoid damage the neurovascular and tendinous structures. Using intraoperative fluoroscopy and an MIS per, an osteotomy was then made at the neck of the 1st metatarsal. The metatarsal head was then shifted into position aligning the sesamoid bones over the fragment. Using a 6 2 steimann pin, the wire was then driven down the shaft of the 1st metatarsal to hold the head in place until the osteotomy has healed. Fluoroscopy verified proper placement of hardware as well as correction of previous bunion deformity. Attention was directed to the left 2nd toe where hammertoes located. A small stab incision was made medial to the proximal phalanx. Using the MIS bur, an osteotomy was made across the proximal phalanx. This allowed for adequate correction of the hammertoe deformity and soft tissue release for correction of the angular deformity. It was noted clinically and fluoroscopy topically that the contracture was no longer there. All surgical wounds were irrigated copiously with saline and closed in layers with the aforementioned suture material. A dry sterile dressing was placed on the surgical extremity. The patient was placed in a postop shoe POSTOPERATIVE INFORMATION: The patient tolerated the above noted procedure and anesthesia well and was transferred to the PACU with vital signs stable, and vascular status intact with capillary refill intact to all digits. Postoperative instructions reviewed in detail with the patient with written instructions provided. Patient will return to clinic in approximately 10-14 days for first postoperative visit. Patient has the number of the clinic and was instructed to call prior to that time should any problems, questions, or concerns arise. Condition Good Disposition Home ERICK MEDRANO DPMichael Feb 15, 2025 10:43
[2025-02-15] MEDS: CELECOXIB 100 MG CAP PO ONE (10:50)
[2025-02-15] MEDS: ACETAMINOPHEN IV 1000 MG/100ML (10MG/ML) IV ONE (10:50)
[2025-02-15] MEDS: GABAPENTIN 300 MG CAP PO ONE (10:50)
[2025-02-15 11:50] VITALS: PULSE 74; RESP 16; O2SAT 97
[2025-02-15 12:30] VITALS: PULSE 71; RESP 16; O2SAT 98
[2025-02-15 13:24] VITALS: PULSE 74; RESP 16; O2SAT 97
== END | disposition home or self-care (01) ==
LOC: SUR 08:33
PROVIDERS: ATTEND Podiatrist
DX: M21.611 Bunion of right foot (principal); M21.612 Bunion of left foot; M20.42 Other hammer toe(s) (acquired), left foot; I10 Essential (primary) hypertension; I73.89 Other specified peripheral vascular diseases; I08.2 Rheumatic disorders of both aortic and tricuspid valves; I27.20 Pulmonary hypertension, unspecified; K21.9 Gastro-esophageal reflux disease without esophagitis; F43.10 Post-traumatic stress disorder, unspecified; F31.9 Bipolar disorder, unspecified; F41.8 Other specified anxiety disorders; E66.3 Overweight; Z68.26 Body mass index [BMI] 26.0-26.9, adult; Z87.891 Personal history of nicotine dependence; Z88.5 Allergy status to narcotic agent; Z86.718 Personal history of other venous thrombosis and embolism; Z90.710 Acquired absence of both cervix and uterus; Z98.890 Other specified postprocedural states; Z82.49 Family history of ischemic heart disease and other diseases of the circulatory system; Z83.42 Family history of familial hypercholesterolemia; Z82.3 Family history of stroke
CPT/HCPCS: 28285; 28296; 36415; 80053; 81001; 85025; 85610; 85730; C1713; J0690; J1100; J1885; J2405; J2704; J0131